=== PATIENT | female | born 1995 | race Caucasian/White ===

== ENCOUNTER → 2020-12-11 16:00 | Outpatient (CLI) | payer OTHER, SELFPAY ==
--- NOTE | ~2020-12-11 | XR_ITS ---
EXAMINATION: XR chest 2V 12/11/2020 16:24 INDICATION: Dyspnea PROCEDURE: 2 view chest COMPARISON: No prior studies for comparison. FINDINGS: The lungs are clear. The cardiomediastinal silhouette is within normal limits. There are no pleural effusions. There is no pneumothorax suspected. IMPRESSION: 1: NO ACUTE CARDIOPULMONARY DISEASE. Reviewed, dictated and finalized at location A.
--- NOTE | ~2020-12-11 | US_ITS ---
EXAMINATION: US soft tissue head and neck EXAM DATE: 12/11/2020 16:19 INDICATION: Other specified symptoms and signs involving the circulatory. TECHNIQUE: Multiple grayscale and Doppler images of the right neck, submandibular region of clinical concern were obtained (by a technologist who performed the scan) and subsequently reviewed. There is no prior study for comparison. FINDINGS: Scanning right neck area of concern demonstrates unremarkable subcutaneous fat, underlying musculatur e, carotid artery. No right internal jugular chain lymphadenopathy. The submandibular region also unr emarkable. IMPRESSION: 1. Unremarkable ultrasound exam. Reviewed, dictated and finalized at location B.
== END ==
PROVIDERS: PCP Internal Medicine; Visit Provider Internal Medicine
DX: R09.89 Other specified symptoms and signs involving the circulatory and respiratory systems (principal)
CPT/HCPCS: 71046; 76536

== ENCOUNTER 2020-12-23 15:50 | Emergency (ER) | payer OTHER, SELFPAY ==
--- NOTE | ~2020-12-23 | XR_ITS ---
XR chest 2V DATE: 12/23/2020 18:24 INDICATION: Dizziness. Smoker. TECHNIQUE: PA and lateral views COMPARISON: 12/11/2020 2 view chest FINDINGS: Normal heart size. No hilar or mediastinal enlargement. No pulmonary infiltrate or consol idation, pulmonary vascular congestion or pleural effusion or pneumothorax. IMPRESSION: Negative Reviewed, dictated and finalized at location A. IMPRESSION: Negative
--- NOTE | ~2020-12-23 | CT_ITS ---
EXAMINATION: CT abdomen pelvis w con DATE: 12/23/2020 18:20 INDICATION: Abdominal pain, nausea and vomiting TECHNIQUE: Computed tomography (CT) of the abdomen and pelvis was performed with 100 cc Omnipaque 350 intravenous contrast. Automated exposure control and iterative reconstruction technique were employe d. Exam dose: 240.19 mGy-cm total exam DLP. COMPARISON: None. FINDINGS: The lung bases are clear. Normal heart size. No pericardial or pleural effusion. No hepatic, splenic, pancreatic, adrenal or renal space occupying mass lesion is detected. Normal ca liber of the abdominal aorta. No intraperitoneal or retroperitoneal or pelvic mass lesion or lymphad enopathy or ascites is detected. Normal appendix. There are non-dilated small bowel segments with fluid and occasional air fluid leve ls. No bowel obstruction or free air. The urinary bladder and uterus and adnexal areas are unremarkable. Included skeletal structures are unremarkable. IMPRESSION: Non-dilated fluid containing small bowel, possibly due to enteritis or mild adynamic ile us Normal appendix No bowel obstruction or free air Reviewed, dictated and finalized at Location A. Reviewed, dictated and finalized at location A. IMPRESSION: Non-dilated fluid containing small bowel, possibly due to enteriti s or mild adynamic ileus Normal appendix No bowel obstruction or free air
[2020-12-23 15:53] VITALS: BP 153/100; PULSE 93; RESP 16; TEMP 36.6; O2SAT 100
[2020-12-23 16:07] LABS: Basophils Absolute Auto 0.1 K/mm3 (0.0-0.1); Basophils Percent Auto 1.2 % (0.2-1.2); Eosinophils Absolute Auto 0.1 K/mm3 (0-0.3); Eosinophils Percent Auto 1.8 % (0-4.4); Hematocrit 38.3 % (37.0-47.0); Lymphocytes Absolute Auto 1.54 K/mm3 (0.9-3.2); Lymphocytes Percent Auto 31.2 % (18.3-44.2); Mean Corpuscular HGB Conc 33.9 g/dl (32-36); Mean Corpuscular Hemoglobin 29.3 pg (26-34); Mean Corpuscular Volume 86.3 fl (80-100); Mean Platelet Volume 9.9 fl (7.4-10.4); Monocytes Absolute Auto 0.4 K/mm3 (0.1-0.6); Monocytes Percent Auto 7.3 % (2.6-8.5); Neutrophils Absolute Auto 2.9 K/mm3 (1.3-6.7); Neutrophils Percent Auto 58.5 % (45.5-73.1); Platelet Count Result 226 k/mm3 (150-375); Red Blood Count 4.44 M/mm3 (4.2-5.4); Red Cell Distribution Width 12.4 % (11.5-14.5); White Blood Count 4.9 K/mm3 (4.5-10.0)
[2020-12-23 16:17] LABS: Add Urine Microscopic? YES; Appearance Urine Cloudy (Clear); Bacteria Urine Trace /hpf; Bilirubin Urine Negative (Negative); Blood Urine 2+ (Negative); Color Urine Straw (Yellow); Glucose Urine UA Negative (Negative); Ketones Urine Negative (Negative); Leukocyte Esterase Ur Trace LEU/UL (Negative); Nitrate Urine Negative (Negative); Protein Urine Negative (Negative); Squamous Epithelial Cell Urine Few /hpf (Few); Urobilinogen Urine Negative mg/dL (<2.0)
[2020-12-23 16:19] LABS: Alanine Aminotransferase 18 U/L (4-35); Albumin Level 4.9 g/dL (3.5-5.1); Alkaline Phosphatase 49 U/L (38-126); Anion Gap 9 mmol/L (8-16); Aspartate Amino Transferase 31 U/L (14-36); Bilirubin,Total 0.4 mg/dL (0.2-1.3); Blood Urea Nitrogen 7 mg/dL (7-17); Calcium 9.6 mg/dL (8.4-10.2); Carbon Dioxide 28 mmol/L (22-30); Chloride 100 mmol/L (98-107); Estimated CRCL calculation 104 ml/min; Estimated Glomerular Filt Rate > 60; Glucose 96 mg/dL (65-110); Lipase 45 U/L (23-300); Potassium 3.3 mmol/L (3.4-5.0); Sodium 137 mmol/L (137-145)
[2020-12-23 16:21] LABS: Specific Grav Ur 1.003 (1.001-1.035)
--- NOTE | 2020-12-23 17:38 | ECG_ITS ---
Measurements Intervals [place] Rate: 72 P: 71 [place]: 160 QRS: 77 QRSD: 82 T: 58 QT: 408 QTc: 447 Interpretive Statements SINUS RHYTHM NORMAL ECG Electronically Signed On 12-23-2020 20:02:38 CDT by Saravanan Ruffin D.O.
--- NOTE | 2020-12-23 17:39 | ED.ABDPAIN ---
HPI - Abdominal Pain General Chief Complaint: Abdominal Pain Stated Complaint: abd pain Time Seen by Provider: 12/23/20 17:23 Source: patient Mode of arrival: ambulatory Limitations: no limitations History of Present Illness HPI narrative: This is a 25-year-old female that presents to the emergency department for upper abdominal pain present over the last couple weeks. Reports an intermittent sharp upper abdominal pain. Reports today the pain has been more constant. Associated with nausea and vomiting. Also reports presyncopal episodes. Does report some urinary discomfort. Denies fever, chest pain, shortness of breath, diarrhea, hematochezia, or hematuria. Related Data Home Medications Medication Instructions Recorded Confirmed cyanocobalamin (vitamin B-12) 500 mcg PO DAILY 01/26/19 08/15/20 [Vitamin B-12] cholecalciferol (vitamin D3) 25 25 mcg PO DAILY 08/15/20 08/15/20 mcg (1,000 unit) capsule Allergies Allergy/AdvReac Type Severity Reaction Status Date / Time Penicillins AdvReac Unknown Vomiting Verified 12/23/20 18:07 clindamycin AdvReac Nausea and Verified 12/23/20 18:08 Vomiting Review of Systems Review of Systems: CONSTITUTIONAL: Denies fever CARDIOVASCULAR: Denies chest pain, or edema. RESPIRATORY: Denies dyspnea. GASTROINTESTINAL: Reports abdominal pain, nausea, vomiting. Denies diarrhea. GENITOURINARY: Reports dysuria. Denies hematuria. All systems reviewed & are unremarkable except as noted in HPI and below PMFSH Past Medical History Medical History (Updated 12/23/20 @ 19:46 by Yareli White PA-C) Anxiety Family History Family History Father Skin cancer Malignant neoplasm of prostate Mother Skin cancer Lymphoma Sibling Asthma Diabetes mellitus Depression Grandparent Malignant neoplasm of prostate Other Family history of malignant neoplasm Social History Social History Smoking status: Former smoker Smoking end date: 02/17/13 Alcohol intake: never Substance use: current Substance use type: marijuana Exam Narrative: GENERAL: Well-appearing, well-nourished, and in no acute distress. HEAD: Normocephalic, atraumatic. EYES: EOMI. CHEST: Clear to auscultation. No respiratory distress. No wheezes rales or rhonchi HEART: Regular rate and rhythm. No murmur heard. Normal peripheral pulses. ABDOMEN: Soft, nondistended, normal active bowel sounds. Tender to palpation throughout the upper abdomen, without guarding. No CVA tenderness EXTREMITIES: Normal range of motion. No edema. SKIN: Warm, dry, no rash. NEURO: No focal deficits. Alert and oriented x3. PSYCH: Normal mood and affect Course Consultations Consultation #1: Spoke with patient's on-call primary about work-up. Patient will be called for follow-up appointment Date: 12/23/20 Time: 19:48 Vital Signs Vital signs: Vital Signs Temperature 98 F 12/23/20 15:53 Pulse Rate 93 12/23/20 15:53 Respiratory Rate 16 12/23/20 15:53 Blood Pressure 153/100 H 12/23/20 15:53 Pulse Oximetry 100 12/23/20 15:53 Temperature 98 F 12/23/20 15:53 Pulse Rate 93 12/23/20 15:53 Respiratory Rate 16 12/23/20 15:53 Blood Pressure 153/100 H 12/23/20 15:53 Pulse Oximetry 100 12/23/20 15:53 MDM - Abdominal Pain MDM Narrative Medical decision making narrative: Patient presents the emergency department for abdominal pain intermittent over the last week, worsening today. She is afebrile and nontoxic-appearing. Vitals are stable. Also was reporting presyncopal type episodes. CBC without concerning findings. Metabolic panel with mild hypokalemia potassium 3.3. Lipase is normal. UA with 4-6 white blood cells and trace leuk esterase, patient does endorse urinary discomfort so will be started on an antibiotic. This will be sent for culture. Bedside test is negative.
[2020-12-23] MEDS: SODIUM CHLORIDE 0.9% IV 1,000 ML 999 ML IV CONT (17:51)
[2020-12-23] MEDS: ONDANSETRON INJ 4 MG/2 ML VIAL IV PUSH (17:52)
[2020-12-23] MEDS: FAMOTIDINE 20 MG/2 ML VIAL IV PUSH (17:54)
[2020-12-23 19:25] VITALS: BP 131/93; PULSE 71; RESP 16; O2SAT 100
--- NOTE | 2020-12-23 19:25 | PC.NURSE ---
Assumed care of pt at this time. Pt alert and upright on stretcher, updated on POC. Pt rates 6/10 pain at this time.
[2020-12-23] MEDS: POTASSIUM CHLORIDE 20 MEQ PACKET (FOR LIQUID) 40 MEQ PO (20:14)
[2020-12-23 20:20] VITALS: BP 123/88; PULSE 76; RESP 20; O2SAT 100
== END 2020-12-23 20:21 | disposition home or self-care (01) ==
PROVIDERS: Emergency Provider Emergency Medicine; PCP Internal Medicine
DX: N30.00 Acute cystitis without hematuria (principal); K56.0 Paralytic ileus; E87.6 Hypokalemia; Z87.891 Personal history of nicotine dependence
CPT/HCPCS: 36415; 71046; 74177; 80053; 81001; 81025; 83690; 85025; 87086; 87088; 93005; 96361; 96365; 96375; 99284; A9270; J0131; J2405; J7030; Q9967

== ENCOUNTER → 2021-09-19 10:45 | Outpatient (CLI) | payer OTHER, SELFPAY ==
--- NOTE | ~2021-09-19 | MR_ITS ---
EXAMINATION: MR TMJS DATE: 09/19/2021 11:24 INDICATION: Myalgia of mastication muscle. Right jaw pain. TECHNIQUE: Magnetic resonance imaging (MRI) of the temporomandibular joints was performed without int ravenous contrast. Sequences included closed-mouth sagittal T2-weighted FSE and PD-weighted FSE and c oronal T1-weighted SE and open-mouth sagittal T2-weighted FSE and PD-weighted FSE and coronal T1-weig hted SE. COMPARISON: None. FINDINGS: The right temporomandibular joint demonstrates small osteophytes and a subchondral cyst of the mandib ular condyle. There is anterior displacement of the disc with mouth closed. There is less than expect ed anterior translation of the mandibular condyle with mouth open. There is no recapture of the disc with mouth open. The left temporomandibular joint demonstrates small osteophytes of the mandibular condyle. There is a nterior displacement of the disc with mouth closed. There is less than expected anterior translation of mandibular condyle with mouth open. There is no recapture of the disc with mouth open. IMPRESSION: 1. Moderate osteoarthritis of right temporomandibular joint and mild osteoarthritis of left temporoma ndibular joint. Abnormal anterior displacement of the discs with mouth closed without recapture with mouth open. Reviewed, dictated and finalized at location A. IMPRESSION: 1. Moderate osteoarthritis of right temporomandibular joint and mild osteoarthr itis of left temporomandibular joint. Abnormal anterior displacement of the dis cs with mouth closed without recapture with mouth open.
== END ==
PROVIDERS: PCP Internal Medicine
DX: M26.643 Arthritis of bilateral temporomandibular joint (principal); M79.11 Myalgia of mastication muscle
CPT/HCPCS: 70336

== ENCOUNTER 2022-03-29 16:10 | Emergency (ER) | payer OTHER, SELFPAY ==
--- NOTE | ~2022-03-29 | XR_ITS ---
EXAMINATION: XR chest 2V DATE: 03/29/2022 18:23 INDICATION: Dyspnea. Lower sternal pain. TECHNIQUE: PA and lateral views of the chest were obtained. COMPARISON: Chest radiograph dated 12/23/2020 FINDINGS: The lungs remain clear with no focal airspace opacities, pulmonary edema, pleural effusion or pneumot horax. The cardiomediastinal silhouette is normal. Visualized bones and soft tissues are unremarkable . IMPRESSION: 1. No acute cardiopulmonary disease. Reviewed, dictated and finalized at location A. 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
[2022-03-29 16:36] VITALS: BP 143/109; PULSE 54; RESP 14; TEMP 36.4; O2SAT 100
[2022-03-29 17:03] LABS: Basophils Absolute Auto 0.1 K/mm3 (0.0-0.1); Basophils Percent Auto 0.8 % (0.2-1.2); Eosinophils Absolute Auto 0.1 K/mm3 (0-0.3); Eosinophils Percent Auto 1.5 % (0-4.4); Hematocrit 43.9 % (37.0-47.0); Hemoglobin 14.4 g/dL (12.0-15.0); Immature Granulocyte Absolute 0.01 K/mm3 (0.00-0.031); Immature Granulocyte Percent A 0.2 % (0-0.5); Lymphocytes Absolute Auto 2.02 K/mm3 (0.9-3.2); Lymphocytes Percent Auto 32.8 % (18.3-44.2); Mean Corpuscular HGB Conc 32.8 g/dl (32-36); Mean Corpuscular Hemoglobin 28.7 pg (26-34); Mean Corpuscular Volume 87.5 fl (80-100); Mean Platelet Volume 10.1 fl (7.4-10.4); Monocytes Absolute Auto 0.5 K/mm3 (0.1-0.6); Monocytes Percent Auto 7.5 % (2.6-8.5); Neutrophils Absolute Auto 3.5 K/mm3 (1.3-6.7); Neutrophils Percent Auto 57.2 % (45.5-73.1); Platelet Count Result 273 k/mm3 (150-375); Red Blood Count 5.02 M/mm3 (4.2-5.4); Red Cell Distribution Width 13.6 % (11.5-14.5); White Blood Count 6.2 K/mm3 (4.5-10.0)
[2022-03-29 17:05] LABS: Appearance Urine Clear (Clear); Bilirubin Urine Negative (Negative); Blood Urine 3+ (Negative); Color Urine Yellow (Yellow); Glucose Urine UA Negative (Negative); Ketones Urine Negative (Negative); Leukocyte Esterase Ur Trace LEU/UL (Negative); Nitrate Urine Negative (Negative); Protein Urine Negative (Negative); Urobilinogen Urine 0.2 mg/dL (<2.0)
[2022-03-29 17:15] LABS: Alanine Aminotransferase 21 U/L (6-35); Albumin Level 5.2 g/dL (3.5-5.1); Alkaline Phosphatase 55 U/L (38-126); Anion Gap 7 mmol/L (8-16); Aspartate Amino Transferase 36 U/L (14-36); Bilirubin,Total 0.8 mg/dL (0.2-1.3); Blood Urea Nitrogen 8 mg/dL (7-17); Calcium 9.4 mg/dL (8.4-10.2); Carbon Dioxide 28 mmol/L (22-30); Chloride 99 mmol/L (98-107); Estimated CRCL calculation 109 ml/min; Estimated Glomerular Filt Rate > 60; Glucose 83 mg/dL (65-110); Lipase 53 U/L (23-300); Potassium 3.5 mmol/L (3.4-5.0); Sodium 134 mmol/L (137-145)
--- NOTE | 2022-03-29 17:29 | ECG_ITS ---
Measurements Intervals [place] Rate: 64 P: 68 [place]: 152 QRS: 79 QRSD: 85 T: 61 QT: 430 QTc: 446 Interpretive Statements SINUS RHYTHM POSSIBLE LEFT ATRIAL ENLARGEMENT [-0.1mV P-WAVE IN V1/V2] COMPARED TO ECG 12/23/2020 18:01:00 NO SIGNIFICANT CHANGES Electronically Signed On 03-30-2022 8:37:03 REFERENCE LIBRARY ASSISTANT by Venus Nickerson M.D.
--- NOTE | 2022-03-29 17:31 | ED.ABDPAIN ---
HPI - Abdominal Pain General Chief Complaint: Abdominal Pain <Winter Markham PA-C - Last Filed: 03/29/22 20:20> Stated Complaint: SEVERE ABDOMINAL PAIN <Winter Markham PA-C - Last Filed: 03/29/22 20:20> Time Seen by Provider: 03/29/22 17:02 <Winter Markham PA-C - Last Filed: 03/29/22 20:20> History of Present Illness HPI narrative: 26-year-old female reports to the emergency department for epigastric abdominal pain x2 weeks. Patient reports she went to her primary care for the abdominal pain 2 weeks ago and was prescribed MiraLAX, senna, omeprazole with some relief, However her symptoms have worsened in the past 2 days. She has not taken her omeprazole in 2 days. Patient describes the pain in her epigastric region radiating to her left upper quadrant and into her chest, with occasional nausea. She reports having bowel movements full every 2 days, with a small bowel movement in between. She reports occasionally feeling like she has not emptied her bowels completely. Reports having an episode of diarrhea 2 weeks ago but has not had any recently. States she has not been eating or drinking well the past couple of days. She is denying fever, congestion, sore throat, dysphagia, odynophagia, dysuria, hematuria, melena, headaches, chest pain, shortness of breath, vomiting, alcohol use, hematochezia. She is currently on her period. <Winter Markham PA-C - Last Filed: 03/29/22 20:20> Related Data Home Medications: Home Medications Medication Instructions Recorded Confirmed cyanocobalamin (vitamin B-12) 500 500 mcg PO DAILY 01/26/19 08/15/20 mcg lozenges (Vitamin B-12) cholecalciferol (vitamin D3) 25 25 mcg PO DAILY 08/15/20 08/15/20 mcg (1,000 unit) capsule <Winter Markham PA-C - Last Filed: 03/29/22 20:20> Allergies/Adverse Reactions: Allergies Allergy/AdvReac Type Severity Reaction Status Date / Time Penicillins AdvReac Unknown Vomiting Verified 12/23/20 18:07 clindamycin AdvReac Nausea and Verified 12/23/20 18:08 Vomiting <Winter Markham PA-C - Last Filed: 03/29/22 20:20> Review of Systems Review of Systems: CONSTITUTIONAL: Denies fever, chills EYES: Denies visual changes, redness, or discharge. ENT: Denies rhinorrhea, congestion, sore throat, or otalgia. CARDIOVASCULAR: Denies chest pain, palpitations, or edema. RESPIRATORY: Denies cough or dyspnea. GASTROINTESTINAL: see HPI GENITOURINARY: Denies dysuria or hematuria. SKIN: Denies rash or itching. MUSCULOSKELETAL: Denies back pain, joint pain, or myalgia. NEUROLOGIC: Denies headache, numbness, dizziness, or weakness. PSYCHIATRIC: Denies anxiety or depression. <Winter Markham PA-C - Last Filed: 03/29/22 20:20> PMFSH Past Medical History Medical History: Medical History Anxiety <Winter Markham PA-C - Last Filed: 03/29/22 20:20> Family History Family History: Family History Father Skin cancer Malignant neoplasm of prostate Mother Skin cancer Lymphoma Sibling Asthma Diabetes mellitus Depression Grandparent Malignant neoplasm of prostate Other Family history of malignant neoplasm <Winter Markham PA-C - Last Filed: 03/29/22 20:20> Social History Social History: Social History Smoking status: Former smoker Smoking end date: 02/17/13 Alcohol intake: never Substance use: current Substance use type: marijuana <Winter Markham PA-C - Last Filed: 03/29/22 20:20> Exam Narrative: GENERAL: Well-appearing, well-nourished, and in no acute distress. HEAD: Normocephalic, atraumatic. EYES: PERRLA and EOMI. ENT: Nares clear, no rhinorrhea or epistaxis. Mucous membranes moist. Oropharynx without tonsillar hypertrophy exudate or other lesions. Bilateral TMs pearly davis n
[2022-03-29 17:37] LABS: Bacteria Urine Trace /hpf; Mucus Urine Rare /lpf; Squamous Epithelial Cell Urine Many /hpf (Few)
[2022-03-29 17:38] LABS: Add Urine Microscopic? YES
[2022-03-29] MEDS: ONDANSETRON INJ 4 MG/2 ML VIAL IV PUSH (17:56)
[2022-03-29] MEDS: SODIUM CHLORIDE 0.9% IV 1,000 ML 999 ML IV CONT (17:56)
[2022-03-29] MEDS: FAMOTIDINE 20 MG/2 ML VIAL IV PUSH (17:57)
[2022-03-29 18:07] LABS: Troponin I < 0.012 ng/mL (0.000-0.034)
[2022-03-29] MEDS: BELLADONNA ALK/PHENOB ELIX 10 ML, MAG HYDROX/ALUMINUM HYD/SIMETH 30 ML, LIDOCAINE HCL 2... PO (19:22)
== END 2022-03-29 20:36 | disposition home or self-care (01) ==
PROVIDERS: Family Medicine; Emergency Provider Physician Assistant; PCP Internal Medicine
DX: R10.13 Epigastric pain (principal); Z87.891 Personal history of nicotine dependence; R94.31 Abnormal electrocardiogram [ECG] [EKG]
CPT/HCPCS: 36415; 71046; 80053; 81001; 81025; 83690; 84484; 85025; 93005; 96361; 96374; 96375; 99284; A9270; J2405; J7030

== ENCOUNTER → 2022-06-25 10:22 | Outpatient (CLI) | payer OTHER, SELFPAY ==
--- NOTE | ~2022-06-25 | US_ITS ---
US abdomen limited INDICATION: Right upper abdominal pain PROCEDURE: Realtime right upper abdominal ultrasound. COMPARISON: No prior studies for comparison. FINDINGS: The pancreas is normal without focal mass or pancreatic ductal dilation. Liver echotexture is normal without focal mass or intrahepatic biliary dilatation. There is normal directional flow i n the portal vein. The gallbladder is normal without stones, gallbladder wall thickening or pericholecystic fluid. Comm on bile duct measures 3 mm. No sonographic Avelar's sign. IMPRESSION: 1: Normal limited abdominal ultrasound. Reviewed, dictated and finalized at location L.
== END ==
PROVIDERS: PCP Internal Medicine; Visit Provider Internal Medicine
DX: R10.9 Unspecified abdominal pain (principal)
CPT/HCPCS: 76705

== ENCOUNTER 2022-07-01 22:13 | Emergency (ER) | payer OTHER, SELFPAY ==
--- NOTE | ~2022-07-01 | CT_ITS ---
CT of the Abdomen and Pelvis: Indication: Abdominal pain Technique: 2.5 mm axial scans were obtained through the abdomen and pelvis following intravenous adm inistration of 100 cc of Omnipaque 350. Dose reduction technique was used on this scan by utilizing a utomated exposure control and iterative reconstruction technique. The dose-length product (DLP) was 3 51.61 mGy-cm. COMPARISON: 12/23/2020 Findings: Scans through the lung bases are unremarkable. The liver, spleen, pancreas, gallbladder, adrenals and kidneys are within normal limits. There is sug gestion of narrowing of the left renal vein as it passes between the aorta and SMA. No evidence of ao rtic aneurysm. No lymphadenopathy. Questionable mild wall thickening of the stomach. Remainder of bowel appears unremarkable, though the re is some areas of motion artifact. No bowel obstruction. No abscess or free air. Images through the pelvis were performed. Urinary bladder unremarkable. No significant adnexal mass s een. No ascites. Impression: Questionable gastritis. Suggestion of narrowing of left renal vein as it passes between the aorta and SMA. Correlate for any possibility of nutcracker syndrome. Reviewed, dictated and finalized at location M. Impression: Questionable gastritis. Suggestion of narrowing of left renal vein as it passes between the aorta and S MA. Correlate for any possibility of nutcracker syndrome.
[2022-07-01 22:15] VITALS: BP 120/87; PULSE 92; RESP 17; TEMP 36.8; O2SAT 99
[2022-07-01 22:50] LABS: Basophils Absolute Auto 0.1 K/mm3 (0.0-0.1); Eosinophils Absolute Auto 0.1 K/mm3 (0-0.3); Hematocrit 38.6 % (37.0-47.0); Hemoglobin 12.7 g/dL (12.0-15.0); Immature Granulocyte Absolute 0.01 K/mm3 (0.00-0.031); Immature Granulocyte Percent A 0.2 % (0-0.5); Lymphocytes Absolute Auto 1.73 K/mm3 (0.9-3.2); Mean Corpuscular HGB Conc 32.9 g/dl (32-36); Mean Corpuscular Hemoglobin 28.7 pg (26-34); Mean Corpuscular Volume 87.3 fl (80-100); Mean Platelet Volume 9.6 fl (7.4-10.4); Monocytes Absolute Auto 0.4 K/mm3 (0.1-0.6); Monocytes Percent Auto 6.4 % (2.6-8.5); Neutrophils Absolute Auto 3.7 K/mm3 (1.3-6.7); Neutrophils Percent Auto 61.4 % (45.5-73.1); Platelet Count Result 214 k/mm3 (150-375); Red Blood Count 4.42 M/mm3 (4.2-5.4)
[2022-07-01 23:03] LABS: Alanine Aminotransferase 24 U/L (6-35); Albumin Level 4.8 g/dL (3.5-5.1); Alkaline Phosphatase 62 U/L (38-126); Anion Gap 7 mmol/L (8-16); Aspartate Amino Transferase 33 U/L (14-36); Bilirubin,Total 0.5 mg/dL (0.2-1.3); Blood Urea Nitrogen 7 mg/dL (7-17); Calcium 9.2 mg/dL (8.4-10.2); Carbon Dioxide 31 mmol/L (22-30); Chloride 99 mmol/L (98-107); Estimated CRCL calculation 108 ml/min; Estimated Glomerular Filt Rate > 60; Glucose 83 mg/dL (65-110); Lipase 84 U/L (23-300); Potassium 3.8 mmol/L (3.4-5.0); Sodium 137 mmol/L (137-145)
[2022-07-01 23:10] LABS: Appearance Urine Clear (Clear); Bacteria Urine None Seen /hpf; Bilirubin Urine Negative (Negative); Blood Urine Trace (Negative); Color Urine Yellow (Yellow); Glucose Urine UA Negative (Negative); Ketones Urine 1+ mg/dL (Negative); Leukocyte Esterase Ur Negative LEU/UL (Negative); Nitrate Urine Negative (Negative); Non Pathogenic Casts 0-2; Protein Urine Trace mg/dL (Negative); RBC Urine 0-2 /hpf (0-2); Specific Grav Ur 1.015 (1.001-1.035); Squamous Epithelial Cell Urine None seen /hpf (Few); Urobilinogen Urine 0.2 mg/dL (<2.0); WBC Urine 0-5 /hpf
[2022-07-01 23:21] LABS: Add Urine Microscopic? NO
[2022-07-02] MEDS: PROCHLORPERAZINE EDISYLATE 10 MG/2 ML VIAL IV PUSH (00:59)
[2022-07-02] MEDS: FAMOTIDINE 20 MG/2 ML VIAL IV PUSH (00:59)
[2022-07-02] MEDS: DICYCLOMINE HCL INJ 20 MG/2 ML VIAL IM (00:59)
[2022-07-02 04:53] VITALS: BP 139/96; PULSE 81; RESP 14; O2SAT 100
--- NOTE | 2022-07-02 04:58 | ED.GENADULT ---
HPI - General Adult General Chief complaint: Abdominal Pain Stated complaint: right side pain Time Seen by Provider: 07/02/22 00:34 History of Present Illness HPI narrative: This is a 19-year-old female presenting to ED with a chief complaint of right-sided abdominal pain. Patient says that the pain has been going on for several months and has been seen in the ER several times. Today it got worse after noon. It is a sharp pain in the side of her stomach, nonradiating 7 out 10 intensity and constant. She has experienced pain for the like this in the past in the no exacerbating alleviating factors. She has had some nausea but no vomiting, fevers chest pain shortness of breath or urinary symptoms. She does have an appointment scheduled with a GI physician. Her last bowel movement was yesterday and was normal. Patient is concerned because she had an adynamic ileus in the past and is worried that is what might be going on now although she has not had any vomiting. Related Data Home Medications Medication Instructions Recorded Confirmed cyanocobalamin (vitamin B-12) 500 500 mcg PO DAILY 01/26/19 08/15/20 mcg lozenges (Vitamin B-12) cholecalciferol (vitamin D3) 25 25 mcg PO DAILY 08/15/20 08/15/20 mcg (1,000 unit) capsule Allergies Allergy/AdvReac Type Severity Reaction Status Date / Time Penicillins AdvReac Unknown Vomiting Verified 07/02/22 01:26 clindamycin AdvReac Nausea and Verified 07/02/22 01:26 Vomiting PMFSH Past Medical History Medical History Anxiety Bipolar 2 disorder Family History Family History Father Skin cancer Malignant neoplasm of prostate Mother Skin cancer Lymphoma Sibling Asthma Diabetes mellitus Depression Grandparent Malignant neoplasm of prostate Other Family history of malignant neoplasm Social History Social History Smoking status: Former smoker Smoking end date: 02/17/13 Alcohol intake: never Substance use: current Substance use type: marijuana Exam Narrative: APPEARANCE: No apparent distress. Head: atraumatic. EYES: EOMI, NOSE: Atraumatic NECK: Trachea midline RESPIRATORY: No increased rate of breathing CARDIOVASCULAR: RRR, ABDOMINAL: Abdomen is soft nontender with no guarding or rebound. No CVA tenderness. MUSCULOSKELETAl: No obvious deformities NEURO: Alert. Moving 4/4 extremities SKIN:: Warm, dry. Normal color PSYCHIATRIC: Normal affect Course Vital Signs Vital signs: Vital Signs Temperature 98.2 F 07/01/22 22:15 Pulse Rate 92 07/01/22 22:15 Respiratory Rate 17 07/01/22 22:15 Blood Pressure 120/87 07/01/22 22:15 Pulse Oximetry 99 07/01/22 22:15 Oxygen Delivery Room Air 07/01/22 22:15 Temperature 98.2 F 07/01/22 22:15 Pulse Rate 81 07/02/22 04:53 Respiratory Rate 14 07/02/22 04:53 Blood Pressure 139/96 H 07/02/22 04:53 Pulse Oximetry 100 07/02/22 04:53 Oxygen Delivery Room Air 07/01/22 22:15 Medical Decision Making MDM Narrative Medical decision making narrative: -Presentation: 27-year-old with right-sided abdominal pain. Patient states she is here to get a CT abdomen pelvis. This will be provided. Lab work has been ordered. 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 -Hx from independent Sources: None -Discussion of Management/Consultants: none -Independent interpretation of studies: lab work is within normal limits. Urinalysis was not indicative of infect
== END 2022-07-02 05:30 | disposition home or self-care (01) ==
PROVIDERS: Emergency Provider Emergency Medicine; PCP Internal Medicine
DX: R10.9 Unspecified abdominal pain (principal); F41.9 Anxiety disorder, unspecified; F31.9 Bipolar disorder, unspecified
CPT/HCPCS: 36415; 74177; 80053; 81003; 81025; 83690; 85025; 96365; 96372; 96375; 99284; J0131; J0500; J0780; Q9967